=== PATIENT | female | born 2000 | race Caucasian/White ===

== ENCOUNTER 2022-01-22 01:59 | Emergency (ER) | payer OTHER, SELFPAY ==
--- OUTSIDE RECORDS SUMMARY | 2022-01-22 02:03 | XMS REPORT | Continuity of Care Document ---
:2001 Author Organization [facility] t Address [address] [place] [address] Care Team Providers Name Role Phone Coco BLAKELY Attending Clinician Unavailable David Nova Attending Clinician Unavailable Nimesh Morris Attending Clinician Unavailable Amber Attending Clinician Unavailable ORI Attending Clinician Unavailable Coco BLAKELY Admitting Clinician Unavailable Rico Admitting Clinician Unavailable Amber Admitting Clinician Unavailable Keith SIMON Unavailable Unavailable Dima SIMON Unavailable Unavailable Christin COPPOLA Unavailable Matias SIMON Unavailable Unavailable Subhash GARCIA Unavailable Avtar MYLES F Unavailable Jimmie SIMON Unavailable Unavailable Sal RAI Unavailable Unavailable Ta MYLES E Unavailable Payers Payer Name Policy Type Policy Number Effective Date Expiration Date Netta marinelli [facility] [id number] 2019 Health Plan 00:00:00 Medicaid $5 Copay D [id number] 2018 2019 00:00:00 00:00:00 Problems Condition Condition Condition Status Onset Resolution Last Treating Co mments Source Name Details Category Date Date Treatment Clinician Date Encounter Encounter 46414-6 Active 2021-02-18 Parker, 2.16.84 for for 14:48:47 Josefina 0.1.113 management management 88 3.4.2 and and injection injection of of depo-Prove depo-Prove ra ra (Renamed (Renamed from from Encounter Encounter for for management management and and injection injection of of injectable injectable progestin progestin contracept contracept napoleon) napoleon) (Z30.42) (V25.49)Ri ALFRED king Josefina Encounter Encounter 55318-0 Active 2021-05-26 Parker, 2.16.84 for for 15:14:47 Josefina 0.1.113 management management 88 3.4.2 and and injection injection of of depo-Prove depo-Prove ra ra (Renamed (Renamed from from Encounter Encounter for for management management and and injection injection of of injectable injectable progestin progestin contracept contracept napoleon) napoleon) (Z30.42) (V25.49)Ri fernandoALFRED Josefina Abortions AbortionsS Active 2022-01-02 Dima 2.16.84 ALFRED gutierrez 16:17:19 Namrata 0.1. 113 DanielleCo 883.4. 2 mments: 1. miscarriag e Blood Blood 44435-8 Active 2020-09-03 Christin, 2 .16.84 pressure pressure 22:54:25 Kely 0. 1.113 check check 883.4.2 (Z01.30) (V81.1)ABDON Ibrahim Kely Deliveries Deliveries Active 2022-01-02 Dima 2.16.84 (Para) (Para)Ston 16:17:19 Namrata 0. 1.113 e, [place] 883.4.2 DanielleCo mments: 0. Encounter Encounter Active 2022-01-02 Dima 2.16.84 for for 16:23:50 Namrata 0.1.11 3 management management 88 3.4.2 and and injection injection of of injectable injectable progestin progestin contracept contracept napoleon napoleon (Z30.42) (V25.49)St jose [place] Namrata Pregnancie Pregnancie 76379-4 Active 2022-01-02 Stone, 2.16.84 s s 16:17:19 Namrata 0.1.11 3 () ()S 883 .4.2 ALFRED gutierrez mments: 1. Abortions AbortionsS 19483-8 Active 2020-09-03 kemal Salcedo [place] 15:12:18 Carline Hensley ments: 1. miscarriag e Back Back 93577-9 Active 2019-09-18 Chad Cullen 2 .16.84 strain, strain, 17:51:02 0.1.11 3 initial initial 883.4.2 encounter encounter (S39.012A) (847.9)Pro gnosis: Back exam benign. Pt has full ROM and good flexibilit y. SLR test negative. No vertebral tenderness . Mild muscle tension noticed. Given stretches to do daily. Pt has BMI of 43. Discussed part of her back pain might be from her weight as most of her pain is in mid back. Encouraged weight loss. Instructed to return if no improvemen t with stretches and heating pad and tylenol/ib uprofen and if worsening symptoms. as of 18-Sep-2019 Subhash DO Bonilla Blood Blood 37243-4 Active 2020-09-03 Christin, pressure pressure 22:54:25 What Cheer check check (Z01.30) (V81.1)ABDON Ibrahim What Cheer BMI BMI 17871-4 Active 2020-09-03 Caitlin Waller .16.84 35.0-35.9, 35.0-35.9, 22:54:53 Kely 0.1.113 adult adult 883.4.2 (Renamed (Renamed from Body from Body mass index mass index (BMI) of (BMI) of 35.0 to 35.0 to 35.9 in 35.9 in adult) adult) (Z68.35) (V85.35)ABDON Martinez What Cheer Deliveries Deliveries 87822-5 Active 2020-09-03 Matias, (Para) (Para)Suar 15:12:18 ALFRED Mariano ments: 0. Encounter Encounter 50750-7 Active 2019-04-29 Chad Cullen 2.84 for for 15:39:15 0.1.113 management management 88 3.4.2 and and injection injection of of depo-Prove depo-Prove ra ra (Renamed (Renamed from from Encounter Encounter for for management management and and injection injection of of injectable injectable progestin progestin contracept contracept napoleon) napoleon) (Z30.42) (V25.49)Pr ognosis: Pt tolerating depo-prove ra well. UPT negative. Contracept ion consent signed. Depo-prove ra injection given today. Instructed to return in 3 months for next injection. as of DO Chad Osei Screen [place] Screen [place] 00451-3 Active 2018-12-31 Avtra 2. STD STD 15:05:09 Bhavani Hernandez 0.1.11 3 (sexually (sexually 883. 4.2 transmitte transmitte d disease) d disease) (Z11.3) (V74.5)MD Bhavani Rae Encounter Encounter 06086-9 Active 2019-07-18 Jimmie 2..84 for for 15:48:42 Anjali 0.1.113 management management 88 3.4.2 and and injection injection of of depo-Prove depo-Prove ra ra (Renamed (Renamed from from Encounter Encounter for for management management and and injection injection of of injectable injectable progestin progestin contracept contracept napoleon) napoleon) (Z30.42) (V25.49)Tran escamilla MA Anjali Encounter Encounter 99196-5 Active 2020-01-19 Keith 2. for for 13:21:13 Josefina 0.1.113 management management 88 3.4.2 and and injection injection of of depo-Prove depo-Prove ra ra (Renamed (Renamed from from Encounter Encounter for for management management and and injection injection of of injectable injectable progestin progestin contracept contracept napoleon) napoleon) (Z30.42) (V25.49)Erasmo king [place] Josefina Encounter Encounter 17185-7 Active 2020-04-22 Sal 2.16. for for 08:11:44 Misa 0.1.113 management management 88 3.4.2 and and injection injection of of depo-Prove depo-Prove ra ra (Renamed (Renamed from from Encounter Encounter for for management management and and injection injection of of injectable injectable progestin progestin contracept contracept napoleon) napoleon) (Z30.42) (V25.49)To CECELIA camargo Encounter Encounter 66582-8 Active 2019-10-20 Ta 2.16.84 for for 13:48:54 Todd E 0.1.113 management management 88 3.4.2 and and injection injection of of injectable injectable progestin progestin contracept contracept napoleon napoleon (Z30.42) (V25.49)Indiana velasquez MD Todd E Encounter Encounter 42887-4 Active 2020-11-25 Matias 2.16.84 for for 13:07:53 Carline 0.1.113 management management 88 3.4.2 and and injection injection of of injectable injectable progestin progestin contracept contracept napoleon napoleon (Z30.42) (V25.49)Pr ognosis: Pt's urine test negative. Given Depo-Prove ra today. as of ALFRED [place] 11482-0 Active 2018-12-30 Keith 2 .16.84 prophylact prophylact 14:18:29 Josefina 0.1.113 ic ic 883.4.2 vaccinatio vaccinatio n against n against human human papillomav papillomav irus - irus - Gardasil 4 Gardasil 4 (Renamed (Renamed from Need from Need for for prophylact prophylact ic ic vaccinatio vaccinatio n against n against human human papillomav papillomav irus) irus) (Z23) (V04.89)Erasmo king [place] Josefina Nicotine Nicotine 06669-7 Active 2020-09-03 Christin 2.16.84 dependence dependence 22:55:13 What Cheer 0.1.113 (F17.200) 883.4.2 (305.1)ABDON Ibrahim What Cheer Non-Contri Non-Contri 26851-4 Active 2018-12-30 Avtar 2.16.84 mariajose billy 14:10:45 Bhavani Hernandez 0.1.11 3 Other Past Other Past 88 3.4.2 History History History HistoryGor MD Suzette ashleyyaa Hernandez Obesity, Obesity, 15137-0 Active 2019-09-18 Chad Cullen 09.28.83 morbid, morbid, 17:51:31 0.1.11 3 BMI BMI 883.4.2 40.0-49.9 40.0-49.9 (Renamed (Renamed from from Morbid Morbid obesity obesity with body with body mass index mass index of of 40.0-49.9) 40.0-49.9) (E66.01) (278.01)Pr ognosis: Discussed weight loss, diet and exercise. as of 18-Sep-2019 Subhash DO Bonilla Pregnancnikky Pregnancie 44506-2 Active 2020-09-03 netta Salcedo s 15:12:18 Carline () ()ALFRED Ann ments: 1. Allergies, Adverse Reactions, Alerts Allergy Allergy Status Severity Reaction(s) Onset Inactive Treating Comm ents Source Name Type Date Date Clinician No Known DA Active U 2018-08 [facility] 0 [place] [facility] [place] morphine DA Active SV [facility] 04-10 [place] 00:00: [facility] 00 [facility] [place] morphine DA Active SV DIZZINESS [facility] 04-10 [place] 00:00: [facility] 00 [facility] [place] codeine DA Active VA [facility] 12-17 [place] 00:00: [facility] are [place] codeine DA Active VA UNKNOWN [facility] 12-17 [place] 00:00: [facility] 00 are [place] Codeine Allergy Active 09.28.83 Sulfate 0.1.113 *ANALGES 883.4.2 ICS - OPIOID* Social History Social Habit Start Date Stop Date Quantity Comments Source Alcohol Use: Non Drinker / No 2.16.8 40.1.1138 Alcohol Use. 83.4.2 Drug Use: No drug use. 09.28.830.1.1 138 83.4.2 Primary None. 09.28.830.1. 1138 Control Method: 83.4.2 Tobacco use: Current every day 2-5 cig a day 2. 840.1.1138 smoker. 83.4.2 Tobacco/Smoke Daily. 09.28.830.1. 1138 Exposure: 83.4.2 Smoking Status Start Date Stop Date Source Tobacco smoking consumption unknown Smokes tobacco daily Medications Ordered Filled Start Stop Current Ordering Indication Dosage Frequency Signature Comments Components Source Medication Medication Date Date Medication? Clinician (SIG) Name Name Vyvanse 50 No Vyvanse 50 2 .16.84 MG Oral 5-23 MG Oral 0.1.113 Capsule 16:20: Capsule; 883.4. 2 21 (50 MG) Vyvanse 50 No Vyvanse 50 2 .16.84 MG Oral 5-23 MG Oral 0.1.113 Capsule 16:20: Capsule; 883.4. 2 21 (50 MG) Depo-Bone Worker No 1{Argelia Depo-Prove 2.16.84 a 150 MG/ML 5-23 liter} ra 150 0.1. 113 Intramuscul 00:00: MG/ML 883.4 .2 ar 00 Intramuscu Suspension lar Suspension ; 1 (one) Milliliter every 3 months for 90 days Quantity: 1 {Millilite r}Refills: 3Ordered: 2AMD Sherita osei rt: 2 Depo-Bone Worker No 1{Argelia Depo-Prove 2.16.84 a 150 MG/ML 5-23 liter} ra 150 0.1. 113 Intramuscul 00:00: MG/ML 883.4 .2 ar 00 Intramuscu Suspension lar Suspension ; 1 (one) Milliliter every 3 months for 90 days Quantity: 1 {Millilite r}Refills: 3Ordered: MD Sherita Stewart rt: 2 Latuda 20 No Latuda 20 MG Oral 1-22 MG Oral Tablet 15:12: Tablet; 43 (20 MG) Latuda 20 No Latuda 20 MG Oral 1-22 MG Oral Tablet 15:12: Tablet; 43 (20 MG) Latuda 20 No Latuda 20 MG Oral 1-22 MG Oral Tablet 15:12: Tablet; 43 (20 MG) Latuda 20 2020-0 No Latuda 20 MG Oral 1-22 MG Oral Tablet 15:12: Tablet; 43 (20 MG) Latuda 20 2020-0 No Latuda 20 MG Oral 1-22 MG Oral Tablet 15:12: Tablet; 43 (20 MG) Latuda 20 2020-0 No Latuda 20 MG Oral 1-22 MG Oral Tablet 15:12: Tablet; 43 (20 MG) Latuda 20 2020-0 No Latuda 20 MG Oral 1-22 MG Oral Tablet 15:12: Tablet; 43 (20 MG) Latuda 20 2020-0 No Latuda 20 2.1 6.84 MG Oral 1-22 MG Oral 0.1.113 Tablet 15:12: Tablet; 883.4.2 43 (20 MG) Latuda 20 2020-0 No Latuda 20 2.1 6.84 MG Oral 1-22 MG Oral 0.1.113 Tablet 15:12: Tablet; 883.4.2 43 (20 MG) busPIRone 2020-0 No busPIRone HCl 30 MG 1-22 HCl 30 MG Oral Tablet 15:12: Oral 38 Tablet; (30 MG) busPIRone 0 No busPIRone HCl 30 MG 1-22 HCl 30 MG Oral Tablet 15:12: Oral 38 Tablet; (30 MG) busPIRone 2020-0 No busPIRone HCl 30 MG 1-22 HCl 30 MG Oral Tablet 15:12: Oral 38 Tablet; (30 MG) busPIRone 2020-0 No busPIRone HCl 30 MG 1-22 HCl 30 MG Oral Tablet 15:12: Oral 38 Tablet; (30 MG) busPIRone 2020-0 No busPIRone HCl 30 MG 1-22 HCl 30 MG Oral Tablet 15:12: Oral 38 Tablet; (30 MG) busPIRone 2020-0 No busPIRone HCl 30 MG 1-22 HCl 30 MG Oral Tablet 15:12: Oral 38 Tablet; (30 MG) busPIRone 2020-0 No busPIRone HCl 30 MG 1-22 HCl 30 MG Oral Tablet 15:12: Oral 38 Tablet; (30 MG) busPIRone 2020-0 No busPIRone 2.1 6.84 HCl 30 MG 1-22 HCl 30 MG 0.1.1 13 Oral Tablet 15:12: Oral 883.4. 2 38 Tablet; (30 MG) busPIRone 2021-0 No busPIRone 2.1 6.84 HCl 30 MG 1-22 HCl 30 MG 0.1.1 13 Oral Tablet 15:12: Oral 883.4. 2 38 Tablet; (30 MG) traZODone 2021-0 No traZODone HCl 50 MG 1-22 HCl 50 MG Oral Tablet 15:12: Oral 33 Tablet; (50 MG) traZODone 1-0 No traZODone HCl 50 MG 1-22 HCl 50 MG Oral Tablet 15:12: Oral 33 Tablet; (50 MG) traZODone 2021-0 No traZODone HCl 50 MG 1-22 HCl 50 MG Oral Tablet 15:12: Oral 33 Tablet; (50 MG) traZODone 1-0 No traZODone HCl 50 MG 1-22 HCl 50 MG Oral Tablet 15:12: Oral 33 Tablet; (50 MG) traZODone 1-0 No traZODone HCl 50 MG 1-22 HCl 50 MG Oral Tablet 15:12: Oral 33 Tablet; (50 MG) traZODone 1-0 No traZODone HCl 50 MG 1-22 HCl 50 MG Oral Tablet 15:12: Oral 33 Tablet; (50 MG) traZODone 1-0 No traZODone HCl 50 MG 1-22 HCl 50 MG Oral Tablet 15:12: Oral 33 Tablet; (50 MG) traZODone 1-0 No traZODone 2.1 6.84 HCl 50 MG 1-22 HCl 50 MG 0.1.1 13 Oral Tablet 15:12: Oral 883.4. 2 33 Tablet; (50 MG) traZODone 1-0 No traZODone 2.1 6.84 HCl 50 MG 1-22 HCl 50 MG 0.1.1 13 Oral Tablet 15:12: Oral 883.4. 2 33 Tablet; (50 MG) Vyvanse 50 1-0 No Vyvanse 50 MG Oral 1-22 MG Oral Capsule 15:12: Capsule; 32 (50 MG) Vyvanse 50 1-0 No Vyvanse 50 MG Oral 1-22 MG Oral Capsule 15:12: Capsule; 32 (50 MG) Vyvanse 50 0 No Vyvanse 50 MG Oral 1-22 MG Oral Capsule 15:12: Capsule; 32 (50 MG) Vyvanse 50 0 No Vyvanse 50 MG Oral 1-22 MG Oral Capsule 15:12: Capsule; 32 (50 MG) Vyvanse 50 0 No Vyvanse 50 MG Oral 1-22 MG Oral Capsule 15:12: Capsule; 32 (50 MG) Vyvanse 50 0 No Vyvanse 50 MG Oral 1-22 MG Oral Capsule 15:12: Capsule; 32 (50 MG) Vyvanse 50 0 No Vyvanse 50 MG Oral 1-22 MG Oral Capsule 15:12: Capsule; 32 (50 MG) Depo-Bone Worker No 1{Argelia Depo-Prove a 150 MG/ML 1-22 liter} ra 150 Intramuscul 00:00: MG/ML ar 00 Intramuscu Suspension lar Suspension ; 1 (one) Milliliter every 3 months for 90 daysQuanti ty: 1 {Millilite r}Refills: 3Ordered: 1McClendon , [employer] PenelopeSt art: 1 Depo-Bone Worker No 1{Argelia Depo-Prove a 150 MG/ML -22 liter} ra 150 Intramuscul 00:00: MG/ML ar 00 Intramuscu Suspension lar Suspension ; 1 (one) Milliliter every 3 months for 90 daysQuanti ty: 1 {Millilite r}Refills: 3Ordered: 1McClendon , [employer] PenelopeSt art: 1 Depo-Bone Worker No 1{Argelia Depo-Prove a 150 MG/ML 1-22 liter} ra 150 Intramuscul 00:00: MG/ML ar 00 Intramuscu Suspension lar Suspension ; 1 (one) Milliliter every 3 months for 90 daysQuanti ty: 1 {Millilite r}Refills: 3Ordered: 1McClendon , [employer] PenelopeSt art: 1 Depo-Bone Worker 0 No 1{Argelia Depo-Prove a 150 MG/ML 1-22 liter} ra 150 Intramuscul 00:00: MG/ML ar 00 Intramuscu Suspension lar Suspension ; 1 (one) Milliliter every 3 months for 90 daysQuanti ty: 1 {Millilite r}Refills: 3Ordered: 1McClendon , [employer] PenelopeSt art: 1 Depo-Bone Worker 0 No 1{Argelia Depo-Prove a 150 MG/ML 1-22 liter} ra 150 Intramuscul 00:00: MG/ML ar 00 Intramuscu Suspension lar Suspension ; 1 (one) Milliliter every 3 months for 90 daysQuanti ty: 1 {Millilite r}Refills: 3Ordered: 1McClendon , [facility] PenelopeSt art: 1 Depo-Bone Worker 0 No 1{Argelia Depo-Prove a 150 MG/ML 1-22 liter} ra 150 Intramuscul 00:00: MG/ML ar 00 Intramuscu Suspension lar Suspension ; 1 (one) Milliliter every 3 months for 90 daysQuanti ty: 1 {Millilite r}Refills: 3Ordered: 1McClendon , [facility] PenelopeSt art: 1 Depo-Bone Worker No 1{Argelia Depo-Prove a 150 MG/ML 1-22 liter} ra 150 Intramuscul 00:00: MG/ML ar 00 Intramuscu Suspension lar Suspension ; 1 (one) Milliliter every 3 months for 90 daysQuanti ty: 1 {Millilite r}Refills: 3Ordered: 1McClendon , [employer] PenelopeSt art: 1 Depo-Bone Worker 0 No 1{Suspe Depo-Prove 1 a 150 MG/ML 5-20 nsion} ra 150 injection Intramuscul 00:00: MG/ML every 3 ar 00 Intramuscu months Suspension lar for 1 Suspension year ; 1 (one) Suspension every three months for 90 daysQuanti ty: 1 {Syringe}R efills: 3Ordered: MD Bhavani Denney FStart: 9Comments: 1 injection every 3 months for 1 year Depo-Bone Worker No 1{Suspe Depo-Prove 1 a 150 MG/ML 5-20 nsion} ra 150 injection Intramuscul 00:00: MG/ML every 3 ar 00 Intramuscu months Suspension lar for 1 Suspension year ; 1 (one) Suspension every three months for 90 daysQuanti ty: 1 {Syringe}R efills: 3Ordered: MD Bhavani Denney FStart: 9Comments: 1 injection every 3 months for 1 year Depo-Bone Worker No 1{Suspe Depo-Prove 1 a 150 MG/ML 5-20 nsion} ra 150 injection Intramuscul 00:00: MG/ML every 3 ar 00 Intramuscu months Suspension lar for 1 Suspension year ; 1 (one) Suspension every three months for 90 daysQuanti ty: 1 {Syringe}R efills: 3Ordered: MD Bhavani Denney FStart: 9Comments: 1 injection every 3 months for 1 year Depo-Bone Worker No 1{Suspe Depo-Prove 1 a 150 MG/ML 5-20 nsion} ra 150 injection Intramuscul 00:00: MG/ML every 3 ar 00 Intramuscu months Suspension lar for 1 Suspension year ; 1 (one) Suspension every three months for 90 daysQuanti ty: 1 {Syringe}R efills: 3Ordered: MD Bhavani Denney FStart: 9Comments: 1 injection every 3 months for 1 year Depo-Bone Worker No 1{Suspe Depo-Prove 1 a 150 MG/ML 5-20 nsion} ra 150 injection Intramuscul 00:00: MG/ML every 3 ar 00 Intramuscu months Suspension lar for 1 Suspension year ; 1 (one) Suspension every three months for 90 daysQuanti ty: 1 {Syringe}R efills: 3Ordered: MD Bhavani Denney FStart: 9Comments: 1 injection every 3 months for 1 year Depo-Bone Worker No 1{Suspe Depo-Prove 1 a 150 MG/ML 5-20 nsion} ra 150 injection Intramuscul 00:00: MG/ML every 3 ar 00 Intramuscu months Suspension lar for 1 Suspension year ; 1 (one) Suspension every three months for 90 daysQuanti ty: 1 {Syringe}R efills: 3Ordered: MD Bhavani Denney FStart: 9Comments: 1 injection every 3 months for 1 year Depo-Bone Worker 2019-0 No 1{Suspe Depo-Prove 1 a 150 MG/ML 5-20 nsion} ra 150 injection Intramuscul 00:00: MG/ML every 3 ar 00 Intramuscu months Suspension lar for 1 Suspension year ; 1 (one) Suspension every three months for 90 daysQuanti ty: 1 {Syringe}R efills: 3Ordered: MD Bhavani Denney FStart: 9Comments: 1 injection every 3 months for 1 year Depo-Bone Worker 20190 No 1{Suspe Depo-Prove 1 2.16.84 a 150 MG/ML 5-20 nsion} ra 150 injection 0.1.113 Intramuscul 00:00: MG/ML every 3 88 3.4.2 ar 00 Intramuscu months Suspension lar for 1 Suspension year ; 1 (one) Suspension every three months for 90 days Quantity: 1 {Syringe}R efills: 3Ordered: MD Bhavani Denney FStart: 9Comments: 1 injection every 3 months for 1 year Depo-Bone Worker 20190 No 1{Suspe Depo-Prove 1 2.16.84 a 150 MG/ML 5-20 nsion} ra 150 injection 0.1.113 Intramuscul 00:00: MG/ML every 3 88 3.4.2 ar 00 Intramuscu months Suspension lar for 1 Suspension year ; 1 (one) Suspension every three months for 90 days Quantity: 1 {Syringe}R efills: 3Ordered: MD Bhavani Denney FStart: 9Comments: 1 injection every 3 months for 1 year Immunizations Ordered Filled Immunization Date Status Comments Sour e Immunization Name Name HPV, quadrivalent 2018-12-30 Completed Site: Left 14:18:00 ArmVIS Given: * HPV - Gardasil (12/27/12) HPV, quadrivalent 2018-12-30 Completed Site: Left 14:18:00 ArmVIS Given: * HPV - Gardasil (12/27/12) HPV, quadrivalent 2018-12-30 Completed Site: Left 14:18:00 ArmVIS Given: * HPV - Gardasil (12/27/12) HPV, quadrivalent 2018-12-30 Completed Site: Left 14:18:00 ArmVIS Given: * HPV - Gardasil (12/27/12) HPV, quadrivalent 2018-12-30 Completed Site: Left 14:18:00 ArmVIS Given: * HPV - Gardasil (12/27/12) HPV, quadrivalent 2018-12-30 Completed Site: Left 14:18:00 ArmVIS Given: * HPV - Gardasil (12/27/12) HPV, quadrivalent 2018-12-30 Completed Site: Left 14:18:00 ArmVIS Given: * HPV - Gardasil (12/27/12) HPV, quadrivalent 2018-12-30 Completed Site: Left 2.16.84 0.1.1 14:18:00 ArmVIS Given: 10931.4.2 * HPV - Gardasil (12/27/12) HPV, quadrivalent 2018-12-30 Completed Site: Left 2.16.84 0.1.1 14:18:00 ArmVIS Given: 65199.4.2 * HPV - Gardasil (12/27/12) Vital Signs Vital Name Observation Time Observation Value Comments Source Temperature 2022-01-02 16:20:46 98.3 [degF] Method: Oral 2.16.840 .1.11 3883.4.2 Pulse 2022-01-02 16:20:46 89 /min Pattern: Regular 2.16 .840.1.11 3883.4.2 Respiration Rate 2022-01-02 16:20:46 20 /min Pattern: 2.16 .840.1.11 Unlabored 3883.4.2 BP Systolic 2022-01-02 16:20:46 125 mm[Hg] Patient Position: 2.1 6.840.1.11 Sitting; Cuff 3883.4.2 Location: Left Arm; Cuff Size: Standard BP Diastolic 2022-01-02 16:20:46 69 mm[Hg] Patient Position: 2.1 6.840.1.11 Sitting; Cuff 3883.4.2 Location: Left Arm; Cuff Size: Standard Weight 2022-01-02 16:20:46 235 [lb_av] 2.16.840 .1.11 3883.4.2 Height 2022-01-02 16:20:46 60 [in_us] 2.16.840 .1.11 3883.4.2 BMI 2022-01-02 16:20:46 45.89 kg/m2 2.16.840 .1.11 3883.4.2 Temperature 2020-09-03 15:07:49 98.1 [degF] Method: Thermal 2.16. 840.1.11 Scan 3883.4.2 BMI Percentile 2020-09-03 15:07:49 97 % 2.16.8 40.1.11 3883.4.2 Pulse 2020-09-03 15:07:49 105 /min Pattern: Regular 2.16 .840.1.11 3883.4.2 Respiration Rate 2020-09-03 15:07:49 20 /min Pattern: 2.16 .840.1.11 Unlabored 3883.4.2 BP Systolic 2020-09-03 15:07:49 123 mm[Hg] Patient Position: 2.1 6.840.1.11 Sitting; Cuff 3883.4.2 Location: Left Arm; Cuff Size: Standard BP Diastolic 2020-09-03 15:07:49 88 mm[Hg] Patient Position: 2.1 6.840.1.11 Sitting; Cuff 3883.4.2 Location: Left Arm; Cuff Size: Standard Weight 2020-09-03 15:07:49 181.125 [lb_av] 2.16. 840.1.11 3883.4.2 Height 2020-09-03 15:07:49 60 [in_us] 2.16.840 .1.11 3883.4.2 BMI 2020-09-03 15:07:49 35.37 kg/m2 2.16.840 .1.11 3883.4.2 Pulse 2019-09-18 15:00:11 100 /min Pattern: Regular 2.16 .840.1.11 3883.4.2 BMI Percentile 2019-09-18 14:14:31 99 % 2.16.8 40.1.11 3883.4.2 Temperature 2019-09-18 14:14:31 97.6 [degF] Method: Oral 2.16.840 .1.11 3883.4.2 Pulse 2019-09-18 14:14:31 111 /min Pattern: Regular 2.16 .840.1.11 3883.4.2 Respiration Rate 2019-09-18 14:14:31 16 /min Pattern: 2.16 .840.1.11 Unlabored 3883.4.2 BP Systolic 2019-09-18 14:14:31 147 mm[Hg] Patient Position: 2.1 6.840.1.11 Sitting; Cuff 3883.4.2 Location: Right Arm; Cuff Size: Standard BP Diastolic 2019-09-18 14:14:31 85 mm[Hg] Patient Position: 2.1 6.840.1.11 Sitting; Cuff 3883.4.2 Location: Right Arm; Cuff Size: Standard Weight 2019-09-18 14:14:31 222 [lb_av] 2.16.840 .1.11 3883.4.2 Height 2019-09-18 14:14:31 60 [in_us] 2.16.840 .1.11 3883.4.2 BMI 2019-09-18 14:14:31 43.36 kg/m2 2.16.840 .1.11 3883.4.2 BMI Percentile 2019-04-29 14:10:43 99 % 2.16.8 40.1.11 3883.4.2 Temperature 2019-04-29 14:10:43 99.5 [degF] Method: Oral 2.16.840 .1.11 3883.4.2 Pulse 2019-04-29 14:10:43 108 /min Pattern: Regular 2.16 .840.1.11 3883.4.2 Respiration Rate 2019-04-29 14:10:43 16 /min Pattern: 2.16 .840.1.11 Unlabored 3883.4.2 BP Systolic 2019-04-29 14:10:43 124 mm[Hg] Patient Position: 2.1 6.840.1.11 Sitting; Cuff 3883.4.2 Location: Left Arm; Cuff Size: Standard BP Diastolic 2019-04-29 14:10:43 76 mm[Hg] Patient Position: 2.1 6.840.1.11 Sitting; Cuff 3883.4.2 Location: Left Arm; Cuff Size: Standard Weight 2019-04-29 14:10:43 229 [lb_av] 2.16.840 .1.11 3883.4.2 Height 2019-04-29 14:10:43 60 [in_us] 2.16.840 .1.11 3883.4.2 BMI 2019-04-29 14:10:43 44.72 kg/m2 2.16.840 .1.11 3883.4.2 BMI Percentile 2018-12-30 13:38:18 99 % 2.16.8 40.1.11 3883.4.2 Temperature 2018-12-30 13:38:18 98.5 [degF] Method: Oral 2.16.840 .1.11 3883.4.2 Pulse 2018-12-30 13:38:18 117 /min Pattern: Regular 2.16 .840.1.11 3883.4.2 Respiration Rate 2018-12-30 13:38:18 16 /min Pattern: 2.16 .840.1.11 Unlabored 3883.4.2 BP Systolic 2018-12-30 13:38:18 135 mm[Hg] Patient Position: 2.1 6.840.1.11 Sitting; Cuff 3883.4.2 Location: Left Arm; Cuff Size: Standard BP Diastolic 2018-12-30 13:38:18 77 mm[Hg] Patient Position: 2.1 6.840.1.11 Sitting; Cuff 3883.4.2 Location: Left Arm; Cuff Size: Standard Weight 2018-12-30 13:38:18 212.375 [lb_av] 2.16. 840.1.11 3883.4.2 Height 2018-12-30 13:38:18 60 [in_us] 2.16.840 .1.11 3883.4.2 BMI 2018-12-30 13:38:18 41.48 kg/m2 2.16.840 .1.11 3883.4.2 Procedures Procedure Date / Time Performing Clinician Source Performed ADMINISTRATION OF DEPOT 2022-01-02 00:00:00 Alondra Blount 2.1 [id number] MEDROXYPROGESTERONE ACETATE 3.4. 2 150 MG BY INJECTION ([id number]) ADMINISTRATION OF DEPOT 2021-05-26 00:00:00 NURSE, CLINIC 2.16 .840.1.79131 MEDROXYPROGESTERONE ACETATE 3.4. 2 150 MG BY INJECTION (J1050) THER/PROPH/DIAG INJ, SC/IM 2021-05-26 00:00:00 NURSE, CLINIC 2 .16.840.1.01285 (15896) 3.4.2 ADMINISTRATION OF DEPOT 2021-02-18 00:00:00 NURSE, CLINIC 2.16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
[2022-01-22 02:42] LABS: Urine Blood Negative (Negative); Urine Glucose Negative (Negative); Urine Protein 2+ (Negative); Urine Specific Gravity >=1.030 (1.005-1.030)
[2022-01-22 03:42] LABS: Urine Bacteria 20-50 /HPF (<20); Urine RBC <5 /HPF (NONE SEEN); Urine Urothelial Cells <5 /HPF (NONE SEEN)
[2022-01-22] MEDS ORDERED: ONDANSETRON 4 MG/2 ML VIAL ONE (04:35)
[2022-01-22] MEDS ORDERED: CEFTRIAXONE 1000 MG/VIAL ONE (04:35)
[2022-01-22] MEDS ORDERED: KETOROLAC 30 MG/ML INJ ONE (04:36)
[2022-01-22] MEDS ORDERED: NA CHLORIDE 0.9% 1,000 ML ONE (04:36)
[2022-01-22 04:45] LABS: Absolute Lymphocytes (CBC) 2.3 K/uL (0.7-4.9); Hematocrit 38.8 % (36.0-45.0); Lymphocytes % 27.7 % (15.3-44.8); MPV 7.9 fL (7.6-11.3); RBC Red Blood Cell Count 4.45 M/uL (3.86-4.86)
[2022-01-22 05:04] LABS: Albumin 3.6 g/dL (3.4-5.0); Bilirubin Total 0.5 mg/dL (0.2-1.0); Potassium 3.7 mmol/L (3.5-5.1); Protein, Total 7.4 g/dL (6.4-8.2)
[2022-01-22] MEDS ORDERED: HYDROMORPHONE HCL 1 MG/ML INJ ONE (05:33)
--- NOTE | 2022-01-22 06:45 | EDPHYS ---
Physician Documentation [facility] Name: Amy Verdin Age: 21 yrs Sex: Female : 2000 Arrival Date: 01/22/2022 Time: 02:04 Bed 15 Private MD: ED Physician Robert Trevino HPI: 01/22 02:25 This 21 yrs old Female presents to ER via Ambulatory with complaints of Vaginal Pain. mh7 02:25 The patient presents with flank pain, bilaterally, pelvic pain, that is located in/on mh7 the pelvis, urinary symptoms, dysuria. 02:25 Onset: The symptoms/episode began/occurred 3 day(s) ago. mh7 02:25 Modifying factors: The symptoms are alleviated by nothing, the symptoms are aggravated mh7 by urinating. 02:25 Associated signs and symptoms: Pertinent negatives: constipation, cramping, diarrhea, mh7 dyspareunia, fever, hematuria, nausea, vaginal bleeding, vaginal discharge, vomiting. 02:25 Severity of symptoms: At their worst the symptoms were moderate, 2 day(s) ago, in the 7 emergency department the symptoms are unchanged. 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 - Social history:: Smoking status: Patient reports the use of cigarette tobacco products, Patient uses alcohol, Patient/guardian denies using street drugs. ROS: 02:25 Constitutional: Negative for fever, chills, and weight loss, Eyes: Negative for injury, mh7 pain, redness, and discharge, ENT: Negative for injury, pain, and discharge, Neck: Negative for injury, pain, and swelling, Cardiovascular: Negative for chest pain, palpitations, and edema, Respiratory: Negative for shortness of breath, cough, wheezing, and pleuritic chest pain, MS/Extremity: Negative for injury and deformity, Skin: Negative for injury, rash, and discoloration, Neuro: Negative for headache, weakness, numbness, tingling, and seizure, Psych: Negative for depression, anxiety, suicide ideation, homicidal ideation, and hallucinations, Allergy/Immunology: Negative for hives, rash, and allergies, Endocrine: Negative for neck swelling, polydipsia, polyuria, polyphagia, and marked weight changes, Hematologic/Lymphatic: Negative for swollen nodes, abnormal bleeding, and unusual bruising. Exam: 02:25 Head/Face: Normocephalic, atraumatic. Eyes: Pupils equal round and reactive to light, mh7 extra-ocular motions intact. Lids and lashes normal. Conjunctiva and sclera are non-icteric and not injected. Cornea within normal limits. Periorbital areas with no swelling, redness, or edema. Neck: Trachea midline, no thyromegaly or masses palpated, and no cervical lymphadenopathy. Supple, full range of motion without nuchal rigidity, or vertebral point tenderness. No Meningismus. Chest/axilla: Normal chest wall appearance and motion. Nontender with no deformity. No lesions are appreciated. Respiratory: Lungs have equal breath sounds bilaterally, clear to auscultation and percussion. No rales, rhonchi or wheezes noted. No increased work of breathing, no retractions or nasal flaring. Abdomen/GI: Soft, non-tender, with normal bowel sounds. No distension or tympany. No guarding or rebound. No evidence of tenderness throughout. Back: No spinal tenderness. No costovertebral tenderness. Full range of motion. Skin: Warm, dry with normal turgor. Normal color with no rashes, no lesions, and no evidence of cellulitis. MS/ Extremity: Pulses equal, no cyanosis. Neurovascular intact. Full, normal range of motion. Neuro: Awake and alert, GCS 15, oriented to person, place, time, and situation. Cranial nerves II-XII grossly intact. Motor strength 5/5 in all extremities. Sensory grossly intact. Cerebellar exam normal. Normal gait. Psych: Awake, alert, with orientation to person, place and time. Behavior, mood, and affect are within normal limits. 02:25 Constitutional: The patient appears in no acute distress, alert, awake, uncomfortable. Vital Signs: 02:24 BP 136 / 86; Pulse 128; Resp 18 S; Temp 98.9(O); Pulse Ox 98% on R/A; Weight 99.79 kg bb (R); Height 5 ft. 1 in. (154.94 cm) (R); Pain 9/10; 04:51 BP 129 / 96; Pulse 106; Resp 16 S; Pulse Ox 97% on R/A; bb 04:56 BP 129 / 96; Pulse 106; Resp 18; Temp 98.4; la1 05:20 BP 126 / 57; Pulse 99; Resp 16 S; Pulse Ox 100% on R/A; Pain 9/10; bb 06:29 BP 106 / 79; Pulse 84; Resp 16 S; Pulse Ox 98% on R/A; bb 02:24 Body Mass Index 41.57 (99.79 kg, 154.94 cm) bb MDM: 06:43 Differential diagnosis: appendicitis, kidney stone, nonspecific abdominal pain, urinary mh7 tract infection. Data reviewed: vital signs, nurses notes, lab test result(s), CBC, electrolytes, urinalysis, UPT: negative radiologic studies, CT scan. Data interpreted: Pulse oximetry: on room air is 98 %. Interpretation: normal. Counseling: I had a detailed discussion with the patient and/or guardian regarding: the historical points, exam findings, and any diagnostic results supporting the discharge/admit diagnosis, lab results, radiology results, the need for outpatient follow up, to return to the emergency department if symptoms worsen or persist or if there are any questions or concerns that arise at home. Response to treatment: the patient's symptoms have resolved after treatment, the patient's blood pressure is in an acceptable range, mental status has returned to baseline, the patient no longer shows bradycardia, the patient is not short of breath, the patient is not tachycardic, the patient's pain is gone, the patient's temperature has normalized, the patient is now symptom free, patient is well hydrated. 06:44 Patient medically screened. [facility] 01/22 02:41 Order name: Urine Microscopic Only; Complete Time: 04:45 mw2 01/22 02:42 Order name: Urine Dipstick-Ancillary; Complete Time: 03:04 EDMS 01/22 03:05 Order name: Urine Culture [facility] 01/22 03:41 Order name: CBC with Diff; Complete Time: 04:53 [facility] 01/22 03:41 Order name: CMP; Complete Time: 05:26 [facility] 01/22 03:41 Order name: Lipase; Complete Time: 05:26 [facility] 01/22 03:42 Order name: CT Stone Protocol [facility] 01/22 02:27 Order name: Urine Dipstick-Ancillary (obtain specimen); Complete Time: 02:41 [facility] 01/22 02:27 Order name: Urine Test (obtain specimen); Complete Time: 02:41 [facility] 01/22 03:41 Order name: IV Saline Lock; Complete Time: 04:48 [facility] 01/22 03:41 Order name: Labs collected and sent; Complete Time: 04:48 [facility] Administered Medications: 04:35 Drug: NS 0.9% 1000 ml Route: IV; Rate: 1 bolus; Site: right antecubital; bb 06:22 Follow up: IV Status: Completed infusion; IV Intake: 950ml bb 04:35 Drug: Zofran (Ondansetron) 4 mg Route: IVP; Site: right antecubital; bb 05:29 Follow up: Response: No adverse reaction bb 04:38 Drug: Ketorolac 15 mg Route: IVP; Site: right antecubital; bb 05:30 Follow up: Response: Pain is unchanged, physician notified bb 04:41 Drug: Rocephin (cefTRIAXone) 1 grams Route: IV; Rate: per protocol; Site: right bb antecubital; 04:50 Follow up: IV Status: Completed infusion; IV Intake: 10ml bb 05:29 Drug: Dilaudid (HYDROmorphone) 1 mg Route: IVP; Site: right antecubital; bb 06:22 Follow up: Response: No adverse reaction; Pain is decreased bb Disposition: 06:53 Co-signature as Attending Physician, Robert Trevino MD. [facility] Disposition Summary: 01/22/22 06:44 Discharge Ordered Location: Home [facility] Problem: new [facility] Symptoms: have improved [facility] Condition: Stable [facility] Diagnosis - Pyelonephritis [facility] Followup: [facility] - With: Private Physician - When: 1 - 2 days - Reason: Worsening of condition, Recheck today's complaints, Continuance of care, Re-evaluation by your physician Discharge Instructions: - Discharge Summary Sheet [facility] - Pyelonephritis, Adult, [id number] [facility] Forms: - Medication Reconciliation Form [facility] - Thank You Letter [facility] - Antibiotic Education [facility] - Prescription Opioid Use [facility] Prescriptions: - ketorolac 10 mg Oral tablet - take 1 tablet by ORAL route every 6-8 hours As needed not to exceed 40 mg in [facility] 24hrs; 15 tablet; Refills: 0, Product Selection Permitted - Cipro 500 mg Oral Tablet - take 1 tablet by ORAL route every 12 hours for 10 days; 20 tablet; Refills: 0, [facility] Product Selection Permitted - Tylenol-Codeine #3 300 mg-30 mg Oral - take 2 tablet by ORAL route every 6 hours As needed; 20 tablet; Refills: 0, [facility] Product Selection Permitted Signatures: Dispatcher [employer] Shayna Koenig, LORENZO RN Dax Au, HEAVY EQUIPMENT SALES ASSOCIATE-C HEAVY EQUIPMENT SALES ASSOCIATE-Cla1 Robert Trevino MD [facility]
--- NOTE | 2022-01-22 06:45 | ER ---
Nurse's Notes [facility] Name: Amy Verdin Age: 21 yrs Sex: Female : 2000 Arrival Date: 01/22/2022 Time: 02:04 Bed 15 Private MD: Diagnosis: Pyelonephritis Presentation: 01/22 02:24 Chief complaint: Patient states: she thinks she has a bladder infection she has had bb burning with urination for 3 days with pelvic pain denies fever. Coronavirus screen: At this time, the client does not indicate any symptoms associated with coronavirus-19. Ebola Screen: No symptoms or risks identified at this time. Initial Sepsis Screen: Does the patient meet any 2 criteria? No. Patient's initial sepsis screen is negative. Does the patient have a suspected source of infection? No. Patient's initial sepsis screen is negative. Risk Assessment: Do you want to hurt yourself or someone else? Patient reports no desire to harm self or others. Onset of symptoms was January 19, 2022. 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 - Social history:: Smoking status: Patient reports the use of cigarette tobacco products, Patient uses alcohol, Patient/guardian denies using street drugs. Screenin:27 Abuse screen: Denies threats or abuse. Nutritional screening: No deficits noted. bb Tuberculosis screening: No symptoms or risk factors identified. Fall Risk None identified. Assessment: 02:27 General: Appears in no apparent distress. Behavior is calm, cooperative. Pain: bb Complains of pain in pelvis Pain currently is 9 out of 10 on a pain scale. Neuro: Level of Consciousness is awake, alert, obeys commands, Oriented to person, place, time, situation. Cardiovascular: Capillary refill < 3 seconds Patient's skin is warm and dry. Respiratory: Airway is patent Respiratory effort is even, unlabored, Respiratory pattern is regular. GI: Abdomen is obese. : Reports burning with urination. Derm: Skin is pink, warm \T\ dry. Musculoskeletal: Circulation, motion, and sensation intact. 04:10 Reassessment: Patient is alert, oriented x 3, equal unlabored respirations, skin bb warm/dry/pink. family at bedside. Reassessment: pt resting quietly, eyes closed, resp unlabored, IV site intact, patent with fluids infusing family at bedside. 05:30 Reassessment: pt states pain is not better Dr Trevino notified new orders received pt bb medicated see OCT. 06:23 Reassessment: Patient is alert, oriented x 3, equal unlabored respirations, skin bb warm/dry/pink. pt resting quietly awaiting CT results. 06:58 Reassessment: Patient is alert, oriented x 3, equal unlabored respirations, skin bb warm/dry/pink. pt verbalized understanding of and agrees to plan of care discharge instructions given pt ambulated with steady gait to exit accompanied by family. Vital Signs: 02:24 BP 136 / 86; Pulse 128; Resp 18 S; Temp 98.9(O); Pulse Ox 98% on R/A; Weight 99.79 kg bb (R); Height 5 ft. 1 in. (154.94 cm) (R); Pain 9/10; 04:51 BP 129 / 96; Pulse 106; Resp 16 S; Pulse Ox 97% on R/A; bb 04:56 BP 129 / 96; Pulse 106; Resp 18; Temp 98.4; la1 05:20 BP 126 / 57; Pulse 99; Resp 16 S; Pulse Ox 100% on R/A; Pain 9/10; bb 06:29 BP 106 / 79; Pulse 84; Resp 16 S; Pulse Ox 98% on R/A; bb 02:24 Body Mass Index 41.57 (99.79 kg, 154.94 cm) bb ED Course: 02:04 Patient arrived in ED. bp1 02:25 Triage completed. bb 02:25 Robert Trevino MD is Attending Physician. mh7 02:25 Arm band placed on Patient placed in an exam room, on a stretcher, on pulse oximetry. bb Family accompanied patient. 02:27 Patient has correct armband on for positive identification. Placed in gown. Bed in low bb position. Call light in reach. Side rails up X 1. Adult w/ patient. Pulse ox on. NIBP on. Warm blanket given. 04:07 CT Stone Protocol In Process Unspecified. EDMS 04:21 Shayna Martins, RN is Primary Nurse. bb 04:30 Initial lab(s) drawn, by me, sent to lab. Inserted saline lock: 20 gauge in right bb antecubital area, using aseptic technique. Blood collected. 06:47 No provider procedures requiring assistance completed. IV discontinued, intact, bb bleeding controlled, No redness/swelling at site. Pressure dressing applied. Administered Medications: 04:35 Drug: NS 0.9% 1000 ml Route: IV; Rate: 1 bolus; Site: right antecubital; bb 06:22 Follow up: IV Status: Completed infusion; IV Intake: 950ml bb 04:35 Drug: Zofran (Ondansetron) 4 mg Route: IVP; Site: right antecubital; bb 05:29 Follow up: Response: No adverse reaction bb 04:38 Drug: Ketorolac 15 mg Route: IVP; Site: right antecubital; bb 05:30 Follow up: Response: Pain is unchanged, physician notified bb 04:41 Drug: Rocephin (cefTRIAXone) 1 grams Route: IV; Rate: per protocol; Site: right bb antecubital; 04:50 Follow up: IV Status: Completed infusion; IV Intake: 10ml bb 05:29 Drug: Dilaudid (HYDROmorphone) 1 mg Route: IVP; Site: right antecubital; bb 06:22 Follow up: Response: No adverse reaction; Pain is decreased bb Intake: 04:50 IV: 10ml; Total: 10ml. bb 06:22 IV: 950ml; Total: 960ml. bb Outcome: 06:44 Discharge ordered by Nichole 06:47 Condition: stable bb 06:58 Discharged to home ambulatory, with family. bb 06:58 Discharge instructions given to patient, Instructed on discharge instructions, follow up and referral plans. no driving heavy equipment, medication usage, Demonstrated understanding of instructions, follow-up care, medications, Prescriptions given X 3. 06:59 Patient left the ED. bb Signatures: Dispatcher [employer] EDAL Shayna Martins, LORENZO RN bb Anaid Aguila Maurice, MD MD mh7
[2022-01-22 07:52] VITALS: TEMP 98.4
[2022-01-22 07:55] VITALS: BP 106/79; O2SAT 98
--- NOTE | 2022-01-23 14:42 | RAD REPORT ---
EXAM DESCRIPTION: CT - Stone Protocol - 01/22/2022 6:32 am CLINICAL HISTORY: 21 years Female Flank pain, kidney stone suspected TECHNIQUE: Axial CT imaging of the abdomen and pelvis was performed without oral or intravenous cont rast. Sagittal and coronal reconstructed images were then performed. The CT study is performed acco rding to ALARA (as low as reasonably achievable) or ALARA/IMAGE GENTLY, with automatic adjustment of mA and/or kV according to patient size. Performed on: 01/22/2022 at 4:05 AM COMPARISON: None. FINDINGS: Lung bases: The lung bases are clear. Liver: The liver is normal in size and configuration. No focal hepatic abnormalities are appreciated on this unenhanced scan. Liver attenuation is within normal limits. Spleen: The spleen is normal in size, configuration and attenuation. No focal splenic abnormalities a re appreciated on this unenhanced scan. Gallbladder and bile duct: The gallbladder is well distended and unremarkable. There is no biliary ductal dilatation. Pancreas: The pancreas is grossly normal in size and configuration. Adrenal Glands: The adrenal glands are normal in size and configuration. Kidneys: The kidneys are normal in size and configuration. There is no evidence of hydronephrosis. Th ere is no evidence of nephrolithiasis. No focal renal abnormalities are identified. Stomach: The stomach is grossly normal. There is no definite hiatal hernia. Bowel: The bowel gas pattern is non specific and non obstructive. There are postsurgical changes of t he distal descending colon. Appendix: The appendix is normal. Free air: There is no evidence of free air. Free fluid: There is no evidence of free fluid. Vasculature: The aorta is normal in caliber and contour. The inferior vena cava is grossly unremarkab le. Lymphadenopathy: No pathologic lymphadenopathy is identified. Bladder: The bladder is incompletely distended on this examination. Reproductive: The uterus is grossly within normal limits. The uterus is slightly retroflexed. Bones: No acute osseous abnormalities are identified. Soft tissues: No acute soft tissue abnormalities are identified. There is a small fat-containing vent ral umbilical hernia. There may be very mild scarring of the right perirectal soft tissues. There is also mild infiltration of the fat superficial to the right gluteus muscle which may be chronic in rebecca ure. IMPRESSION: 1. No evidence of acute intra-abdominal or intrapelvic pathology. There is no evidence of urinary tract calcification or urinary tract obstruction. 2. Postsurgical changes of the distal descending colon. 3. Small fat-containing ventral umbilical hernia. 4. Suspect very mild scarring of the right perirectal soft tissues. There is also mild infiltration of the fat superficial to the right gluteus muscle which may be chronic in nature. Correlate with cl inical history. Electronically signed by: Dyan Jules DO 01/22/2022 6:04 AM CDT Due to temporary technical issues with the PACS/Fluency reporting system, reports are being signed by the in house radiologist without review as a courtesy to ensure prompt reporting. The interpreting r adiologist is fully responsible for the content of the report.
== END 2022-01-22 06:59 | disposition home or self-care (01) ==
LOC: ER 01:59
DX: N12 Tubulo-interstitial nephritis, not specified as acute or chronic (principal); F41.9 Anxiety disorder, unspecified; Z72.0 Tobacco use; Z88.5 Allergy status to narcotic agent
CPT/HCPCS: 96361; 87088; 85025; 87086; 36415; 83690; 80053; 76377; 74176; 96375; 96374; 99284; J1170; J7030; J2405; 81003; 81015